=== PATIENT | female | born 1950 | race Caucasian/White ===

== ENCOUNTER → 2024-06-05 10:16 | Outpatient (CLI) | payer MEDICARE, SELFPAY | PROVIDERS: PCP Physician Assistant; Visit Provider Physician Assistant | DX: R10.31 Right lower quadrant pain (principal) | CPT/HCPCS: 87086 ==

== ENCOUNTER 2024-06-10 00:36 | Emergency (ER) | payer MEDICARE, SELFPAY ==
--- NOTE | 2024-06-10 00:49 | ED_ITS ---
HPI - General Adult General Chief complaint: Abdominal Pain Stated complaint: lower rt abdominal/back pain Time Seen by Provider: 06/10/24 00:49 History of Present Illness HPI narrative: 73-year-old female with 7 days duration of abdominal discomfort, seen 5 days ago [facility] with CT diagnosis diverticulitis, was started on oral Augmentin antibiotic, not getting better 2 days later and was seen in clinic [facility] by PCP Dr. De Jesus who changed antibiotic to Cipro/Flagyl combination, which she is taking, however has still having right sided abdominal flank back pain. Now with a rash in the right groin area. Related Data Previous Rx's Medication Instructions Recorded ciprofloxacin HCl 500 mg tablet 500 mg PO TID #21 tabs 06/07/24 (Cipro) metronidazole 500 mg tablet 500 mg PO TID #21 tabs 06/07/24 oxycodone 5 mg capsule 5 mg PO Q4H PRN pain #30 caps 06/07/24 valacyclovir 1 gram tablet 1,000 mg PO BID #20 tabs 06/10/24 Allergies Allergy/AdvReac Type Severity Reaction Status Date / Time No Known Drug Allergies Allergy Unverified 06/07/24 14:36 Patient History Social History Smoking Status: Never smoker Smoking Status: Never smoker Exam Narrative Exam Narrative: GENERAL: Well-developed patient, in mild distress. HEAD: Atraumatic. Normocephalic. EYES: Pupils equal round and reactive. Extraocular motions intact. No scleral icterus. No injection or drainage. ENT: Nose without bleeding, purulent drainage. Throat without erythema, tonsillar hypertrophy or exudate. Airway patent. NECK: Trachea midline. Non tender CARDIOVASCULAR: Regular rate and rhythm without murmurs, gallops, or rubs. RESPIRATORY: Clear to auscultation. Breath sounds equal bilaterally. No wheezes, rales, or rhonchi. GASTROINTESTINAL: Abdomen soft, non-tender, nondistended. EXTREMITIES: No edema or joint tenderness. BACK: Nontender without deformity or crepitance. No flank tenderness. NEURO: AOx3. Motor functions grossly nonfocal SKIN: Splotchy rash without vesicles present right-sided L2 distribution, some at posterior back, some along groin crease upper thigh, consistent with dermatomal zoster eruption. Initial Vital Signs Initial Vital Signs: Vital Signs Temperature 98.5 F 06/10/24 00:53 Pulse Rate 89 06/10/24 00:53 Respiratory Rate 20 06/10/24 00:53 Blood Pressure 160/72 H 06/10/24 00:53 Pulse Oximetry 99 06/10/24 00:53 Oxygen Delivery Method Room Air 06/10/24 00:53 Course Orders Ordered: ED Orders 06/10/24 01:08 CT abdomen pelvis w con Stat 06/10/24 01:13 Complete Blood Count AUTO DIFF Stat Comprehensive Metabolic Panel Stat Lactate (Lactic Acid) Stat Lipase Stat Procalcitonin Stat 06/10/24 03:24 US abdomen limited Stat Discontinued Medications Hydromorphone HCl (Hydromorphone 0.5 Mg Inj) 0.5 mg IV NOW ONE Stop: 06/10/24 01:09 Last Admin: 06/10/24 01:16 Dose: 0.5 mg Documented By: Hydromorphone HCl (Hydromorphone 0.5 Mg Inj) 0.5 mg IV NOW ONE Stop: 06/10/24 03:09 Last Admin: 06/10/24 03:15 Dose: 0.5 mg Documented By: HALEY Sodium Chloride (Normal Saline 0.9%) 1,000 mls @ 1,000 mls/hr IV BOLUS ONE Stop: 06/10/24 02:08 Last Infusion: 06/10/24 02:32 Dose: Infused Documented By: Admin: 06/10/24 01:15 Dose: 1,000 mls/hr Documented By: Ketorolac Tromethamine (Ketorolac 30 Mg/Ml Vial) 15 mg IV NOW ONE Stop: 06/10/24 03:09 Last Admin: 06/10/24 03:15 Dose: 15 mg Documented By: HALEY Ondansetron HCl (Ondansetron 4 Mg/2 Ml Inj) 4 mg IV NOW ONE Stop: 06/10/24 01:09 Last Admin: 06/10/24 01:16 Dose: 4 mg Documented By: Valacyclovir HCl (Valacyclovir 500 Mg Tablet) 1,000 mg PO NOW ONE Stop: 06/10/24 01:12 Last Admin: 06/10/24 01:28 Dose: 1,000 mg Documented By: Vital Signs Vital signs: Vital Signs - 8 hr 06/10/24 00:53 06/10/24 04:30 Temperature 98.5 F Pulse Rate 89 79 Respiratory Rate 20 Blood Pressure 160/72 H 111/56 L Pulse Oximetry 99 93 Oxygen Delivery Method Room Air Room Air Medical Decision Making Lab Data Lab results reviewed: Yes I reviewed the patient's lab results. Lab results narrative: White blood cell count 4900, hemoglobin 14, platelets normal. Basic metabolic panel unremarkable. Liver functions unremarkable, lipase negative. Urine dip ketones positive otherwise negative. 06/10/24 01:13 06/10/24 01:13 Labs: Lab Results 06/10/24 Range/Units 01:13 WBC 4.9 (4.5-11.0) X10^3/uL RBC 4.79 (4.0-5.2) X10^6/uL Hgb 14.0 (12.0-16.0) g/dL Hct 41.9 (36-46) % MCV 87.6 (80-100) fL MCH 29.3 (26-34) PG MCHC 33.4 (30-36) % RDW 13.5 (11.6-14.8) % Plt Count 239 (150-400) X10^3/uL Neut % (Auto) 38.2 L (50-75) % Lymph % (Auto) 44.9 H (25-40) % [place] % (Auto) 16.0 H (3-14) % Eos % (Auto) 0.6 L (2-4) % Baso % (Auto) 0.3 (0-2) % Neut # (Auto) 1900 (7351-8096) /uL Lymph # (Auto) 2200 (8194-6014) /uL [place] # (Auto) 800 (0-900) /uL Eos # (Auto) 0 (0-450) /uL Baso # (Auto) 0 (0-100) /uL Sodium 135 L (137-145) mmol/L Potassium 3.9 (3.4-5.1) mmol/L Chloride 100 (98-107) mmol/L Carbon Dioxide 22 (22-32) mmol/L BUN 13 (7-17) mg/dL Creatinine 0.84 (0.52-1.04) mg/dL Estimated GFR > 60 (>60) mL/min BUN/Creatinine Ratio 15.5 (6-22) Glucose 92 (80-110) mg/dL Lactate 1.1 (0.7-2.1) mmol/L Calcium 9.4 (8.4-10.2) mg/dL Total Bilirubin 0.6 (0.2-1.3) mg/dL AST 40 H (14-36) IU/L ALT 23 (<35) IU/L Alkaline Phosphatase 71 (38-126) U/L Total Protein 7.3 (6.3-8.2) g/dL Albumin 4.3 (3.5-5.0) g/dL Globulin 3.0 (1.7-4.1) g/dL Albumin/Globulin Ratio 1.4 (1.0-2.8) Lipase 183 (23-300) U/L Procalcitonin 0.256 (<0.5) ng/mL Urine Dip Bedside Urine Glucose Negative Bedside Urine Bilirubin - Negative Bedside Urine Ketone +++ 80 Urine Specific [place] 1.030 Bedside Urine Occult Blood +/- Bedside Urine pH 5.5 Bedside Urine Protein +/- 15 Bedside Urine Urobilinogen - Negative Bedside Urine Nitrite - Negative Bedside Urine Leukocytes + 70 Esterase Point of care testing: Urine Dip Bedside Urine Glucose Negative Bedside Urine Bilirubin - Negative Bedside Urine Ketone +++ 80 Urine Specific [place] 1.030 Bedside Urine Occult Blood +/- Bedside Urine pH 5.5 Bedside Urine Protein +/- 15 Bedside Urine Urobilinogen - Negative Bedside Urine Nitrite - Negative Bedside Urine Leukocytes + 70 Esterase MDM Narrative Medical decision making narrative: 73-year-old female on oral antibiotics for treatment of diverticulitis with persisting abdominal pain, at first had two days duration oral Augmentin, switched to ciprofloxacin/metronidazole three days ago, having increased right groin and back discomfort. Also has on examination herpes zoster rash L2 right- sided distribution. We will request records from [facility] from her ED visit there and initial diagnosis about 5 days ago of diverticulitis. Labs sent today including lactate. CT abdomen and pelvis imaging requested. IV Dilaudid/Zofran, still having pain, repeat IV Dilaudid dose, add IV Toradol. Outside medical records review, faxed copy of ED visit [facility] 06/05/2024. ED chief complaint right flank area pain of 2 days' duration with pain to the right groin. CT abdomen and pelvis performed, no acute CT abnormality of the abdomen and pelvis. No mention of any kidney stone or ureteral stones. Likely chronic sigmoid diverticulitis per Radiology report. Patient was discharged on oral antibiotics. 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 Impressions: ?Distended gallbladder measuring up to 55 mm in width. Mild mural hypervascularity and trace pericholecystic edema can not be excluded. No evidence of radiopaque gallstone. In the presence of right upper quadrant pain, further evaluation with right upper quadrant ultrasound recommended to rule out acute cholecystitis. Partially fluid contents in the nondistended: Maybe incidental or due to diarrhea. Correlate clinically. No bowel obstruction.? See tele radiology report. No mention of colitis or diverticulitis like changes. Ultrasound right upper quadrant study ordered. 0430, right upper quadrant ultrasound. Impressions: ?Distended/hydropic gallbladder without evidence of acute cholecystitis (negative sonographic Siddiqui's sign, no evidence of gallstone). ? See tele radiology report. Case discussed with general surgery, he was not concerned about the hydropic gallbladder, and anatomically sounds distinct in location from her current significant pain over the SI joint area consistent with her rash, likely pain due to zoster. Anterior abdominal exam on repeat examination is benign, she points to her right SI area, patchy L2 dermatomal distribution rash was shown to the , low back area of rash was not visible area to the patient, runs from midline low lumbar area across buttock area to the groin and upper thigh right side, along the L2 dermatomal distribution. We will oral antiviral acyclovir, sent to her pharmacy, 1st dose given in the ED. Continue pain medications. Follow up with [facility] advised Tuesday. Discharge Plan Departure Patient Disposition: Home Clinical Impression: Shingles Instructions: DI for Shingles Activity Restrictions/Additional Instructions: Recent suspected CT diagnosis of folliculitis from outside facility, initial antibiotic changed from Augmentin to ciprofloxacin/metronidazole in follow up clinic visit, persisting pain, now today having persisting and worsening pain over the right-sided sacroiliac area. Repeat CT scan was done, with no description of any colitis or diverticulitis changes but perhaps some dilatation of the gallbladder, recommending ultrasound of the gallbladder. Ultrasound of the gallbladder was done, there was no acute cholecystitis changes. Case was discussed with surgery. On physical examination however you do have a patchy rash that looks consistent with herpetic zoster (shingles) that is quite a painful condition and seems to be your more likely diagnosis on the right side, currently running from the back area over your sacroiliac joint area around buttock to the right groin crease and upper thigh, tracking along the right L2 cutaneous dermatome nerve course. We will start some antiviral Valtrex/valve acyclovir, that hopefully can lessen the pain and hopefully reduce the risk of getting post herpetic neuralgia longer-term pain in this distribution. Consider recheck of your examination in clinic early this week on [facility]. Continue taking your oxycodone pain medications as well. For now considering there was suspicion for colitis on a previous CT scan, continue your course of ciprofloxacin/Flagyl, though perhaps your pain was really due to herpetic neuralgia not yet with a diagnostic rash eruption. Follow up in clinic with [facility] in the next couple of days. Return earlier to this/nearest emergency department for any change worsening symptoms or any concerns prior Prescriptions: New valacyclovir 1 gram tablet 1,000 mg PO BID Qty: 20 0RF No Action ciprofloxacin HCl [Cipro] 500 mg tablet 500 mg PO TID Qty: 21 0RF metronidazole 500 mg tablet 500 mg PO TID Qty: 21 0RF oxycodone 5 mg capsule 5 mg PO Q4H PRN (Reason: pain) Qty: 30 0RF Referrals: Meme Macias PA-C [Primary Care Provider] - Yousuf De Jesus MD [Physician] - Stand Alone Forms: Patient Portal/API/Survey
[2024-06-10 00:53] VITALS: BP 160/72; PULSE 89; RESP 20; TEMP 36.9; O2SAT 99; BMI 25.7
--- NOTE | 2024-06-10 01:08 | DI.CT.S_ITS ---
PROCEDURE: CT ABDOMEN PELVIS W CON INDICATIONS: abd pain, recent dx divertic on oral abx TECHNIQUE: After the administration of intravenous contrast, axial sections acquired from the lung bases to the pubic symphysis. Coronal and sagittal reformats were performed. For radiation dose reduction, the following was used: automated exposure control, adjustment of mA and/or kV according to patient size. COMPARISON: [facility], CT, CT ABDOMEN PELVIS WITH CONTRAST, 06/05/2024, 16:39. FINDINGS: Image quality: Diagnostic. Lower Chest: No significant findings. ABDOMEN: Liver: No solid mass. Numerous simple liver cysts are seen. Gallbladder: The gallbladder is distended. Mild hypervascularity can be seen of the gallbladder wall. There is potential trace pericholecystic edema. Pancreas: No ductal dilation. Spleen: Size is within normal limits. Incidental note is made of an accessory splenule along the anterior aspect of the primary spleen. Adrenal Glands: No adrenal nodules. Kidneys and Ureters: No hydronephrosis. No solid mass. No complex renal cystic lesion which requires follow up. Stomach and Bowel: Moderate distal colonic diverticulosis is seen, without jesús findings of active diverticulitis. There is fluid contents within the distal colon. The more proximal colon is within normal limits. A normal appendix is noted. No dilated loops of small bowel are seen. Peritoneum: No abnormal intraperitoneal fluid. No free air. Ventral Wall: No significant ventral hernia. Abdominal Nodes: No retroperitoneal or mesenteric adenopathy by size criteria. Vessels: Aorta and inferior vena cava are normal in size. PELVIS: Pelvic Organs: Unremarkable. Bladder: No bladder wall thickening, accounting for underdistention. Pelvic Nodes: No enlarged lymph nodes. Miscellaneous: No inguinal hernias are seen. Bones: No aggressive osseous abnormality. Multifocal lumbar spine degenerative changes are seen. IMPRESSION: Moderate distal colonic diverticulosis, without jesús findings of active diverticulitis. Fluid contents can be seen within the distal colon. Please correlate with clinical diarrhea. Abnormal gallbladder, which appears distended and hyperemic. If there is strong clinical concern for gallbladder pathology, please consider a dedicated right upper quadrant ultrasound. Additional findings: Numerous simple liver cysts Accessory splenule Multifocal lumbar spine degenerative change Note: No significant discrepancy from the preliminary report. Dictated by: Fabian Christian M.D. on 06/10/2024 at 8:54 Approved by: Ryley MooneyD. on 06/10/2024 at 8:57
[2024-06-10] MEDS: SODIUM CHLORIDE 0.9% 1,000 ML 1000 ML IV (01:15)
[2024-06-10] MEDS: ONDANSETRON 4 MG/2 ML INJ IV (01:16)
[2024-06-10] MEDS: HYDROMORPHONE 0.5 MG INJ IV ×2 (01:16→03:15)
[2024-06-10 01:24] LABS: Add Manual Diff / Slide Review NO; Basophils Absolute Auto 0 /uL (0-100); Basophils Percent Auto 0.3 % (0-2); Eosinophils Absolute Auto 0 /uL (0-450); Eosinophils Percent Auto 0.6 % (2-4); Hematocrit 41.9 % (36-46); Lymphocytes Absolute Auto 2200 /uL (1100-4500); Lymphocytes Percent Auto 44.9 % (25-40); Mean Corpuscular HGB Conc 33.4 % (30-36); Mean Corpuscular Hemoglobin 29.3 PG (26-34); Mean Corpuscular Volume 87.6 fL (80-100); Monocytes Absolute Auto 800 /uL (0-900); Neutrophils Absolute Auto 1900 /uL (1500-7000); Neutrophils Percent Auto 38.2 % (50-75); Platelet Count 239 X10^3/uL (150-400); Red Blood Cell Count 4.79 X10^6/uL (4.0-5.2); Red Cell Distribution Width 13.5 % (11.6-14.8); White Blood Cell Count 4.9 X10^3/uL (4.5-11.0)
[2024-06-10] MEDS: valACYclovir 500 MG TABLET 1000 MG PO (01:28)
[2024-06-10 01:33] LABS: Alanine Aminotransferase 23 IU/L (<35); Albumin 4.3 g/dL (3.5-5.0); Albumin Globulin Ratio 1.4 (1.0-2.8); Alkaline Phosphatase 71 U/L (38-126); Aspartate Aminotransferase 40 IU/L (14-36); BUN Creatinine Ratio 15.5 (6-22); Bilirubin Total 0.6 mg/dL (0.2-1.3); Blood Urea Nitrogen 13 mg/dL (7-17); Calcium 9.4 mg/dL (8.4-10.2); Carbon Dioxide 22 mmol/L (22-32); Chloride 100 mmol/L (98-107); Estimated Glomerular Filt Rate > 60 mL/min (>60); Glucose 92 mg/dL (80-110); HEMOLYSIS < 15 (0-50); Lactate (Lactic Acid) 1.1 mmol/L (0.7-2.1); Lipase 183 U/L (23-300); Potassium 3.9 mmol/L (3.4-5.1); Sodium 135 mmol/L (137-145); Total Protein 7.3 g/dL (6.3-8.2)
--- NOTE | 2024-06-10 01:43 | PC.NURSE ---
Pt ambulatory to imaging with nuclear fuel processing technician
--- NOTE | 2024-06-10 01:43 | PC.NURSE ---
Pt to imaging via ED stretcher with coordinate measuring machine technician
[2024-06-10 02:07] LABS: Procalcitonin 0.256 ng/mL (<0.5)
--- NOTE | 2024-06-10 03:00 | PC.NURSE ---
Pt ambulatory to restroom without difficulty or assistance
[2024-06-10] MEDS: KETOROLAC 30 MG/ML VIAL 15 MG IV (03:15)
--- NOTE | 2024-06-10 03:24 | DI.US.S_ITS ---
PROCEDURE: US ABDOMEN LIMITED INDICATIONS: CT concern for possible acute cholecystitis changes, eval US TECHNIQUE: Real-time focused scanning was performed of the abdomen, with image documentation. COMPARISON: [facility], CT, CT ABDOMEN PELVIS WITH CONTRAST, 06/05/2024, 16:39. [facility], CT, CT ABDOMEN PELVIS W CON, 06/10/2024, 1:48. FINDINGS: The liver is normal in size and demonstrates no suspicious lesions. Several simple liver cysts are seen. Sludge can be seen within the gallbladder. No shadowing stones are seen. The gallbladder wall is not thickened, measuring 3 mm or less. No specific pericholecystic fluid is seen. The sonographic Siddiqui sign is negative. There is no biliary dilatation, the common bile duct measures 5 mm. No significant pancreatic abnormality is seen on these images. The visualized right kidney is unremarkable, without hydronephrosis. IMPRESSION: There is sludge seen within the gallbladder, without additional sonographic signs of cholecystitis. Note: No significant discrepancy from the preliminary report. Dictated by: Fabian Christian M.D. on 06/10/2024 at 9:03 Approved by: Fabian Christian M.D. on 06/10/2024 at 9:05
--- NOTE | 2024-06-10 03:45 | PC.NURSE ---
Ultrasound at bedside
[2024-06-10 04:30] VITALS: BP 111/56; PULSE 79; O2SAT 93
== END 2024-06-10 04:55 | disposition home or self-care (01) ==
PROVIDERS: Emergency Provider Emergency Medicine; PCP Physician Assistant
DX: B02.9 Zoster without complications (principal); K57.92 Diverticulitis of intestine, part unspecified, without perforation or abscess without bleeding
CPT/HCPCS: 36415; 74177; 76705; 80053; 81003; 83605; 83690; 84145; 85025; 96361; 96374; 96375; 96376; 99284; J1171; J1885; J2405; Q9967

== ENCOUNTER → 2025-01-23 09:42 | Outpatient (CLI) | payer MEDICARE, SELFPAY ==
--- NOTE | 2025-01-23 09:44 | DI.US.S_ITS ---
PROCEDURE: US PERIPH VENOUS LOW EXTREM RT INDICATIONS: ANKLE PAIN. TECHNIQUE: Real-time imaging, as well as color and pulse Doppler interrogation, were performed of the lower extremity deep veins from the inguinal ligament to the popliteal fossa, with documentation of the visualized calf veins. COMPARISON: None. FINDINGS: The common femoral, femoral, popliteal, and the visualized calf veins are normally compressible, and free of intraluminal thrombus. Color and pulse Doppler demonstrate normal phasic intraluminal flow. There is normal augmentation response to distal compression maneuver. IMPRESSION: No findings of lower extremity deep venous thrombosis. Dictated by: Ana Laura Gill MD, PhD on 01/23/2025 at 10:50 Approved by: Ana Laura Gill MD, PhD on 01/23/2025 at 10:51
== END ==
PROVIDERS: PCP Physician Assistant; Referring Provider Physician Assistant; Visit Provider Physician Assistant Medical
DX: M25.571 Pain in right ankle and joints of right foot (principal)
CPT/HCPCS: 93971